=== PATIENT | male | born 1930 | race Caucasian/White ===

== ENCOUNTER 2018-10-06 14:58 | Inpatient (IN) ==
[2018-10-06] MEDS ORDERED: traMADol 50 MG TABLET PO PRN (18:46)
[2018-10-06] MEDS: COPPER PO SCH (21:00)
[2018-10-06] MEDS: (Omega-3/Dha/Epa/Fish Oil [Fish Oil 1,000 Mg Softgel]) PO SCH (21:00)
[2018-10-06] MEDS: ZINC PO SCH (21:00)
[2018-10-06] MEDS: VIT C PO SCH (21:00)
[2018-10-06] MEDS: VIT E PO SCH (21:00)
[2018-10-06] MEDS: VIT A PO SCH (21:00)
[2018-10-06] MEDS: Lactobacillus 1 EACH CAP.SPRINK PO SCH (21:42)
[2018-10-06] MEDS: Aspirin Enteric Coated 81 MG Tablet PO SCH (21:42)
[2018-10-06] MEDS: Amoxicillin/Clavulanate 500 MG TABLET PO SCH (21:42)
[2018-10-07 06:30] LABS: BUN/Creatinine Ratio 29 (6-26); Blood Urea Nitrogen 27 mg/dL (8-23); Calcium 8.6 mg/dL (8.6-10.3); Carbon Dioxide 17 mEq/L (23-29); Chloride 111 mEq/L (98-107); Glucose 116 mg/dL (70-105); Osmolality,Calculated 300 (280-300); Potassium 3.7 mEq/L (3.5-5.1); Sodium 142 mEq/L (136-145); eGFR For Non-African Americans > 60 (> 60)
[2018-10-07 07:27] LABS: Basophils % 0.5 %; Eosinophils # 0.2 K/mcL (0.0-0.6); Eosinophils % 3.1 %; Hematocrit 36.5 % (37.5-50.1); Hemoglobin 12.1 g/dL (12.9-16.9); Immature Granulocytes % 3.1 % (0-4); Lymphocytes # 0.4 K/mcL (0.6-4.6); Lymphocytes % 6.3 %; Mean Corpuscular HGB Conc 33.2 g/dL (31.6-35.5); Mean Corpuscular Hemoglobin 34.1 pg (28.0-33.3); Mean Corpuscular Volume 102.8 fL (83.0-100.0); Mean Platelet Volume 11.3 fL (9.4-12.4); Monocytes # 1.3 K/mcL (0.0-1.3); Monocytes % 20.7 %; Neutrophils # 4.1 K/mcL (1.6-8.9); Platelet Count 235 K/mcL (140-400); Red Blood Count 3.55 M/mcL (4.19-5.50); Red Cell Distribution Width 12.7 % (11.5-14.5); Segmented Neutrophils % 66.3 %
[2018-10-07] MEDS: (Omega-3/Dha/Epa/Fish Oil [Fish Oil 1,000 Mg Softgel]) PO SCH ×2 (08:40→22:04)
[2018-10-07] MEDS: Amoxicillin/Clavulanate 500 MG TABLET PO SCH ×2 (08:40→22:04)
[2018-10-07] MEDS: Lactobacillus 1 EACH CAP.SPRINK PO SCH ×2 (08:40→22:04)
[2018-10-07] MEDS: Multivit/Ca/Min/Fe/FA 1 TAB TABLET PO SCH (08:40)
[2018-10-07] MEDS: Finasteride 5 MG TABLET PO SCH (08:41)
[2018-10-07] MEDS: VIT A PO SCH ×2 (08:41→22:05)
[2018-10-07] MEDS: COPPER PO SCH ×2 (08:41→22:05)
[2018-10-07] MEDS: VIT C PO SCH ×2 (08:41→22:05)
[2018-10-07] MEDS: VIT E PO SCH ×2 (08:41→22:05)
[2018-10-07] MEDS: ZINC PO SCH ×2 (08:41→22:05)
[2018-10-07 08:51] LABS: Platelet Estimate Normal (Normal)
[2018-10-07] MEDS: Acetaminophen 325 MG TABLET PO PRN ×2 (08:52→16:29)
[2018-10-07] MEDS ORDERED: Loratadine 10 MG TABLET PO SCH (09:00)
--- NOTE | 2018-10-07 16:27 | Internal Med History&Physical ---
Date of Encounter: 10/07/18 Time of Encounter: 16:00 Assessment and Plan (1) Nasal fracture Current visit: No Status: Acute Nonoperative intervention. Continue to monitor. Qualifiers: Fracture type: closed Fracture healing: with routine healing Qualified Code(s): S02.2XXD - Fracture of nasal bones, subsequent encounter for fracture with routine healing (2) Azotemia Current visit: Yes Status: Acute Monitor renal indices. (3) Elevated transaminase level Current visit: Yes Status: Acute Monitor labs (4) Macrocytic anemia Current visit: Yes Status: Acute B12 and TSH normal on 09/30/2018. Check folate in a.m. Monitor LFTs (5) Physical deconditioning Current visit: No Status: Acute PT and OT evaluations ordered (6) Altered mental status Current visit: No Status: Acute MMSE will be done Qualifiers: Altered mental status type: unspecified Qualified Code(s): R41.82 - Altered mental status, unspecified Internal Medicine - H&P: HPI Chief complaint: confusion Admitted From: Hospital to Hospital Transfer Plans for Post Hospital Care: Home History of present illness: Mr. Rodriguez is a 88 year old male who was admitted to [facility] swing bed after a October 04 stay at [facility] for confusion, disorientation, and hallucinations. He had sustained a fall 09/27/2018 with face trauma and had been hospitalized at [facility] September 28. Nasal bone fracture were documented as well as superficial abrasions. He had been discharged to a local SNF but her turned to [facility] ER for worsening confusion as per above. It was felt he would benefit from swing bed [facility] for ongoing care needs. Neurologic history is negative for previous large distribution strokes or seizures. His daughter who supplies most of the history states he has had increasing confusion for several months most manifested by word searching. He has been appropriate in conversation otherwise. He does not have a diagnosis of dementia, Parkinson's disease, or other neurologic disorders. Past Med Surg Social Fam HX - Past Medical History Medical history: arthritis, GERD, hyperlipidemia, hypertension, osteoporosis Additional medical history: Enlarged prostate Psychiatric history: no psych history - Past Surgical History Surgical History: cataract Additional surgical history: knee replacement, VEIN STRIPPING, KIDNEY STONE REMOVED - Social History Smoking Status: Never smoker Smokeless Tobacco Status: No Alcohol use: none Drug use: none - Family History Mother Living Status: Father Living Status: Internal Medicine - H&P: Meds Alendronate Sodium [Fosamax] 35 mg PO ANGULO 03/14/18 [History] Aspirin [Lo-Dose Aspirin EC] 81 mg PO HS 03/14/18 [History] Atorvastatin [Lipitor] 40 mg PO DAILY 03/14/18 [History] Captopril 50 mg PO TID 03/14/18 [History] Docusate [Colace] 100 mg PO BID PRN 03/14/18 [History] Esomeprazole Magnesium [Nexium] 40 mg PO DAILY 03/14/18 [History] Finasteride [Proscar] 5 mg PO DAILY 03/14/18 [History] Gemfibrozil [Lopid] 600 mg PO BID 03/14/18 [History] Loratadine [Allergy Relief] 10 mg PO DAILY 03/14/18 [History] Metoprolol Tartrate 50 mg PO BID 03/14/18 [History] Multivitamin [One Daily Essential] 1 tab PO DAILY 03/14/18 [History] Polyethylene Glycol 3350 [MiraLAX] 17 gm PO DAILY PRN 03/14/18 [History] Tamsulosin [Flomax] 0.4 mg PO BID 03/14/18 [History] Vit A/Vit C/Vit E/Zinc/Copper [Icaps Areds Softgel] 1 cap PO BID 03/14/18 [History] Acetaminophen 650 mg PO Q6H PRN #30 capsule 10/02/18 [Rx] [place]-3/Dha/Epa/Fish Oil [Fish Oil 1,000 mg Softgel] 1 cap PO BID 10/05/18 [History] Amoxicillin/Clavulanate [Augmentin] 500 mg PO BID 7 Days #0 10/06/18 [Rx] Lactobacillus [Culturelle] 1 each PO BID #20 cap.sprink 10/06/18 [Rx] Tramadol HCl [Ultram] 50 mg PO QID PRN 5 Days #20 tab 10/06/18 [Rx] Allergy/AdvReac Type Severity Reaction Status Date / Time No Known Allergies Allergy Verified 03/14/18 07:41 All Systems PM: A 10-system review of systems was performed and is negative for pertinent findings except as documented above in the HPI. Review of systems: Gen.: His weight has fluctuated a few pounds in the past year but he is now back to his usual adult baseline weight Cardiovascular: He has history of hypertension but no known NM heart failure angina DVT or pulmonary embolus. He had vein stripping approximately 30 years ago for varicose veins Respiratory: He is a lifelong nonsmoker and has no known chronic lung disease GI: He has GERD. There is no known disorders liver gallbladder or exocrine pancreas : He has BPH and history of kidney stones. There is no other known kidney bladder prostate disorders Neurologic: As per history of present illness Endocrine: He has hyperlipidemia but no known diabetes or thyroid disease Hematology/oncology: He was unaware he had anemia on recent labs. There is no known internal malignancies other blood disorders. 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 He has scoliosis. He denies gout or other bone joint or muscle disorders. - Constitutional Vitals: Temp Pulse Resp BP Pulse Ox 98.0 F 96 18 153/76 96 10/07/18 07:24 10/07/18 07:24 10/07/18 07:24 10/07/18 07:24 10/07/18 07:24 Exam: Gen.: He is a well-developed well-nourished male resting comfortably in bed who appears in no acute distress HEENT: He has resolving ecchymosis involving most of his face with abrasion across the bridge of his nose with blood. He has significant periorbital ecchym oses. There is a hematoma on his forehead just right of midline approximately 3 cm maximum diameter. Mouth: Mucosa is moist. Neck: There is no thyromegaly or adenopathy noted. Heart: Regular without murmurs gallops or ectopics Lungs: No wheezes or crackles are heard. Abdomen: Soft and nontender. Has a ventral midline abdominal hernia. No masses or guarding are noted. Extremities: There is no cyanosis edema or clubbing noted. Dorsalis pedis and posterior tibial pulses are trace to 1+ palpable bilaterally. He has mild DJD changes of his hands. Neurologic: Mental status: He answers a few questions but is not conversational. Cranial nerves: Smile is symmetric. Forehead wrinkles bilaterally. Tongue protrudes midline. EOMI. Motor: There is no pronator drift. Cerebellar: Finger to nose is intact bilaterally. Skin: He has ecchymosis as described above on his head. He has ecchymosis on his left knee. There are abrasions in the linear fashion on his right mid and upper lower leg. Internal Med - H&P Results - Labs CBC & Chem 7: 10/07/18 05:16 10/07/18 05:16 Labs: Short CBC 10/07/18 Range/Units 05:16 WBC 6.2 (4.3-11.1) K/mcL Hgb 12.1 L (12.9-16.9) g/dL Hct 36.5 L (37.5-50.1) % Plt Count 235 (140-400) K/mcL Neutrophils # 4.1 (1.6-8.9) K/mcL BMP 10/07/18 05:16 Sodium 142 Potassium 3.7 Chloride 111 H Carbon Dioxide 17 L BUN 27 H Creatinine 0.92 Glucose 116 H Calcium 8.6
[2018-10-07] MEDS: Acetaminophen 325 MG TABLET PO SCH ×2 (17:49→22:03)
[2018-10-07] MEDS: Aspirin Enteric Coated 81 MG Tablet PO SCH (22:04)
[2018-10-08] MEDS: Acetaminophen 325 MG TABLET PO SCH ×4 (06:09→23:42)
[2018-10-08 07:09] LABS: Basophils % 0.7 %; Eosinophils # 0.3 K/mcL (0.0-0.6); Eosinophils % 5.7 %; Hematocrit 32.2 % (37.5-50.1); Immature Granulocytes % 6.2 % (0-4); Lymphocytes # 0.6 K/mcL (0.6-4.6); Mean Corpuscular HGB Conc 34.2 g/dL (31.6-35.5); Mean Corpuscular Hemoglobin 34.7 pg (28.0-33.3); Mean Corpuscular Volume 101.6 fL (83.0-100.0); Mean Platelet Volume 11.3 fL (9.4-12.4); Monocytes % 17.5 %; Neutrophils # 3.4 K/mcL (1.6-8.9); Platelet Count 244 K/mcL (140-400); Red Blood Count 3.17 M/mcL (4.19-5.50); Red Cell Distribution Width 12.9 % (11.5-14.5); Segmented Neutrophils % 58.9 %
[2018-10-08 07:24] LABS: Alanine Aminotransferase 120 Units/L (7-52); Alkaline Phosphatase 69 Units/L (34-104); Aspartate Amino Transferase 72 Units/L (13-39); BUN/Creatinine Ratio 34 (6-26); Bilirubin,Total 0.9 mg/dL (0.3-1.0); Blood Urea Nitrogen 32 mg/dL (8-23); Calcium 8.4 mg/dL (8.6-10.3); Carbon Dioxide 19 mEq/L (23-29); Chloride 111 mEq/L (98-107); Globulin 3.1 g/dL (2.4-3.5); Glucose 103 mg/dL (70-105); Osmolality,Calculated 297 (280-300); Potassium 3.8 mEq/L (3.5-5.1); Sodium 140 mEq/L (136-145); Total Protein 6.1 g/dL (6.4-8.9); Uric Acid 4.2 mg/dL (2.3-7.6); eGFR For Non-African Americans > 60 (> 60)
[2018-10-08 09:15] LABS: % Iron Saturation 68 % (20-55); Iron 88 mcg/dL (65-175); Transferrin 93 mg/dL (203-362)
[2018-10-08 09:29] LABS: Anisocytosis 1+ (Not Present); Platelet Estimate Normal (Normal); Toxic Granulation Present (Not Present)
[2018-10-08 09:30] LABS: Hypochromasia Present (Not Present)
[2018-10-08 09:50] LABS: Ferritin > 1500 ng/mL (20-250)
[2018-10-08] MEDS: Lactobacillus 1 EACH CAP.SPRINK PO SCH ×2 (10:12→20:11)
[2018-10-08] MEDS: Multivit/Ca/Min/Fe/FA 1 TAB TABLET PO SCH (10:13)
[2018-10-08] MEDS: Finasteride 5 MG TABLET PO SCH (10:13)
[2018-10-08] MEDS: VIT A PO SCH ×2 (10:14→20:11)
[2018-10-08] MEDS: (Omega-3/Dha/Epa/Fish Oil [Fish Oil 1,000 Mg Softgel]) PO SCH ×2 (10:14→20:11)
[2018-10-08] MEDS: COPPER PO SCH ×2 (10:14→20:11)
[2018-10-08] MEDS: ZINC PO SCH ×2 (10:14→20:11)
[2018-10-08] MEDS: VIT E PO SCH ×2 (10:14→20:11)
[2018-10-08] MEDS: VIT C PO SCH ×2 (10:14→20:11)
[2018-10-08] MEDS: Amoxicillin/Clavulanate 500 MG TABLET PO SCH ×2 (10:16→20:11)
--- NOTE | 2018-10-08 17:49 | Internal Med Progress Note ---
Date of Encounter: 10/08/18 Time of Encounter: 17:40 - Assessment and plan (1) Nasal fracture Current Visit: No Status: Acute Assessment and plan: October 08. Nonoperative intervention. Continue to monitor. Qualifiers: Fracture type: closed Fracture healing: with routine healing Qualified Code(s): S02.2XXD - Fracture of nasal bones, subsequent encounter for fracture with routine healing (2) Azotemia Current Visit: Yes Status: Acute Assessment and plan: October 08. BUN and creatinine slightly higher at 32 and 0.95 respectively. Continue to monitor. (3) Elevated transaminase level Current Visit: Yes Status: Acute Assessment and plan: October 08. LFTs show mixed change. Continue to monitor. (4) Macrocytic anemia Current Visit: Yes Status: Acute Assessment and plan: October 08. Hemoglobin has decreased to 11.0. Anemia testing shows iron 88, transferrin saturation 68%, transferrin 93, ferritin >1500, and folate 16.2. B12 level was normal at 725 on 09/30/2018. Continue to monitor CBC. (5) Physical deconditioning Current Visit: No Status: Acute Assessment and plan: October 08. Continue PT and OT. (6) Altered mental status Current Visit: No Status: Acute Assessment and plan: October 08. MMSE results not found. He is improved clinically today. Continue to monitor. Qualifiers: Altered mental status type: unspecified Qualified Code(s): R41.82 - Altered mental status, unspecified (7) Left knee pain Current Visit: Yes Status: Acute Assessment and plan: October 08. Knee x-rays 10/04/2018 showed no fracture. Start BenGay with Lidoderm patch. Qualifiers: Chronicity: acute Qualified Code(s): M25.562 - Pain in left knee - Subjective Interval history: October 08. He has no new complaints and feels better. - Constitutional Vitals: Temp Pulse Resp BP Pulse Ox 97.7 F 69 16 144/76 96 10/08/18 07:02 10/08/18 07:02 10/08/18 07:02 10/08/18 07:02 10/08/18 07:02 Exam: He is resting comfortably in bed and appears in no acute distress. His affect is cheerful. Left knee ecchymosis is minimally changed. Abrasions in the right anterior ocampo area show evolutionary improvement. I reviewed his medications and lab results. Internal Medicine: Result - Labs CBC & Chem 7: 10/08/18 05:47 10/08/18 05:47 Labs: Short CBC 10/08/18 Range/Units 05:47 WBC 5.8 (4.3-11.1) K/mcL Hgb 11.0 L (12.9-16.9) g/dL Hct 32.2 L (37.5-50.1) % Plt Count 244 (140-400) K/mcL Neutrophils # 3.4 (1.6-8.9) K/mcL BMP 10/08/18 05:47 Sodium 140 Potassium 3.8 Chloride 111 H Carbon Dioxide 19 L BUN 32 H Creatinine 0.95 Glucose 103 Calcium 8.4 L Liver Function 10/08/18 Range/Units 05:47 Total Bilirubin 0.9 (0.3-1.0) mg/dL AST 72 H (13-39) Units/L ALT 120 H (7-52) Units/L Alkaline Phosphatase 69 (34-104) Units/L Albumin 3.0 L (3.5-5.7) g/dL Consult Discharge Plan - Plan Referrals: Te Christian MD [Primary Care Provider] - 1 week
[2018-10-08] MEDS ORDERED: Methyl Salicylate/Menthol 28 GM TUBE TP PRN (17:50)
[2018-10-08] MEDS: Methyl Salicylate/Menthol 28 GM TUBE TP SCH (20:09)
[2018-10-08] MEDS: Aspirin Enteric Coated 81 MG Tablet PO SCH (20:11)
[2018-10-09] MEDS: Acetaminophen 325 MG TABLET PO SCH ×4 (02:20→21:28)
[2018-10-09] MEDS: Amoxicillin/Clavulanate 500 MG TABLET PO SCH ×2 (09:25→21:28)
[2018-10-09] MEDS: Finasteride 5 MG TABLET PO SCH (09:26)
[2018-10-09] MEDS: Multivit/Ca/Min/Fe/FA 1 TAB TABLET PO SCH (09:26)
[2018-10-09] MEDS: Lactobacillus 1 EACH CAP.SPRINK PO SCH ×2 (09:26→21:28)
[2018-10-09] MEDS: VIT C PO SCH ×2 (09:27→21:28)
[2018-10-09] MEDS: (Omega-3/Dha/Epa/Fish Oil [Fish Oil 1,000 Mg Softgel]) PO SCH ×2 (09:27→21:28)
[2018-10-09] MEDS: VIT A PO SCH ×2 (09:27→21:28)
[2018-10-09] MEDS: COPPER PO SCH ×2 (09:27→21:28)
[2018-10-09] MEDS: Methyl Salicylate/Menthol 28 GM TUBE TP SCH (09:27)
[2018-10-09] MEDS: ZINC PO SCH ×2 (09:27→21:28)
[2018-10-09] MEDS: VIT E PO SCH ×2 (09:27→21:28)
--- NOTE | 2018-10-09 13:54 | Internal Med Progress Note ---
Date of Encounter: 10/09/18 Time of Encounter: 13:45 - Assessment and plan (1) Nasal fracture Current Visit: No Status: Acute Assessment and plan: October 08. Nonoperative intervention. Continue to monitor. Qualifiers: Fracture type: closed Fracture healing: with routine healing Qualified Code(s): S02.2XXD - Fracture of nasal bones, subsequent encounter for fracture with routine healing (2) Azotemia Current Visit: Yes Status: Acute Assessment and plan: October 08. BUN and creatinine slightly higher at 32 and 0.95 respectively. Continue to monitor. October 09. Recheck labs in a.m. (3) Elevated transaminase level Current Visit: Yes Status: Acute Assessment and plan: October 08. LFTs show mixed change. Continue to monitor. October 09. Recheck labs in a.m. (4) Macrocytic anemia Current Visit: Yes Status: Acute Assessment and plan: October 08. Hemoglobin has decreased to 11.0. Anemia testing shows iron 88, transferrin saturation 68%, transferrin 93, ferritin >1500, and folate 16.2. B12 level was normal at 725 on 09/30/2018. Continue to monitor CBC. October 09. Recheck labs in a.m. (5) Physical deconditioning Current Visit: No Status: Acute Assessment and plan: October 08. Continue PT and OT. (6) Altered mental status Current Visit: No Status: Acute Assessment and plan: October 08. MMSE results not found. He is improved clinically today. Continue to monitor. Qualifiers: Altered mental status type: unspecified Qualified Code(s): R41.82 - Altered mental status, unspecified (7) Left knee pain Current Visit: Yes Status: Acute Assessment and plan: October 08. Knee x-rays 10/04/2018 showed no fracture. Start BenGay with Lidoderm patch. October 09. He states pain has significantly lessened. Continue BenGay and Lidoderm patch Qualifiers: Chronicity: acute Qualified Code(s): M25.562 - Pain in left knee - Subjective Interval history: October 08. He has no new complaints and feels better. October 09. He has no new complaints - Constitutional Vitals: Temp Pulse Resp BP Pulse Ox 98.0 F 80 16 142/84 96 10/09/18 07:08 10/09/18 07:08 10/09/18 07:08 10/09/18 07:08 10/09/18 07:08 Exam: He is resting comfortably in bed and appears in no acute distress. His affect is bright and cheerful. I reviewed his medications and past lab results. Internal Medicine: Result - Labs CBC & Chem 7: 10/08/18 05:47 10/08/18 05:47 Consult Discharge Plan - Plan Referrals: Te Christian MD [Primary Care Provider] - 1 week
[2018-10-09] MEDS ORDERED: NON-FORMULARY MEDICATION 1 EACH EACH (Alendronate Sodium [Fosamax] 35 MG) PO SCH (18:46)
[2018-10-09] MEDS: Aspirin Enteric Coated 81 MG Tablet PO SCH (21:28)
[2018-10-10] MEDS: Acetaminophen 325 MG TABLET PO SCH ×4 (05:18→17:13)
[2018-10-10 06:50] LABS: Basophils # 0.1 K/mcL (0.0-0.2); Basophils % 1.1 %; Eosinophils # 0.4 K/mcL (0.0-0.6); Hematocrit 36.5 % (37.5-50.1); Hemoglobin 12.1 g/dL (12.9-16.9); Immature Granulocytes % 8.6 % (0-4); Lymphocytes # 0.8 K/mcL (0.6-4.6); Lymphocytes % 12.6 %; Mean Corpuscular HGB Conc 33.2 g/dL (31.6-35.5); Mean Corpuscular Hemoglobin 33.9 pg (28.0-33.3); Mean Corpuscular Volume 102.2 fL (83.0-100.0); Mean Platelet Volume 11.1 fL (9.4-12.4); Monocytes # 1.1 K/mcL (0.0-1.3); Monocytes % 17.2 %; Neutrophils # 3.6 K/mcL (1.6-8.9); Platelet Count 322 K/mcL (140-400); Red Blood Count 3.57 M/mcL (4.19-5.50); Red Cell Distribution Width 12.5 % (11.5-14.5); Segmented Neutrophils % 54.5 %
[2018-10-10 07:18] LABS: Alanine Aminotransferase 115 Units/L (7-52); Albumin 3.3 g/dL (3.5-5.7); Alkaline Phosphatase 89 Units/L (34-104); Aspartate Amino Transferase 62 Units/L (13-39); BUN/Creatinine Ratio 29 (6-26); Bilirubin,Total 0.7 mg/dL (0.3-1.0); Blood Urea Nitrogen 28 mg/dL (8-23); Calcium 8.8 mg/dL (8.6-10.3); Carbon Dioxide 23 mEq/L (23-29); Chloride 105 mEq/L (98-107); Globulin 3.4 g/dL (2.4-3.5); Glucose 100 mg/dL (70-105); Osmolality,Calculated 290 (280-300); Potassium 4.1 mEq/L (3.5-5.1); Sodium 137 mEq/L (136-145); Total Protein 6.7 g/dL (6.4-8.9); eGFR For Non-African Americans > 60 (> 60)
[2018-10-10 08:37] LABS: Platelet Estimate Normal (Normal)
[2018-10-10] MEDS: Finasteride 5 MG TABLET PO SCH (10:11)
[2018-10-10] MEDS: Multivit/Ca/Min/Fe/FA 1 TAB TABLET PO SCH (10:11)
[2018-10-10] MEDS: Lactobacillus 1 EACH CAP.SPRINK PO SCH ×2 (10:11→20:47)
[2018-10-10] MEDS: Methyl Salicylate/Menthol 28 GM TUBE TP SCH (10:12)
[2018-10-10] MEDS: Amoxicillin/Clavulanate 500 MG TABLET PO SCH ×2 (10:12→20:47)
[2018-10-10] MEDS: ZINC PO SCH ×2 (10:13→20:47)
[2018-10-10] MEDS: VIT C PO SCH ×2 (10:13→20:47)
[2018-10-10] MEDS: (Omega-3/Dha/Epa/Fish Oil [Fish Oil 1,000 Mg Softgel]) PO SCH ×2 (10:13→20:47)
[2018-10-10] MEDS: VIT A PO SCH ×2 (10:13→20:47)
[2018-10-10] MEDS: COPPER PO SCH ×2 (10:13→20:47)
[2018-10-10] MEDS: VIT E PO SCH ×2 (10:13→20:47)
[2018-10-10] MEDS: Aspirin Enteric Coated 81 MG Tablet PO SCH (20:46)
[2018-10-11] MEDS: Acetaminophen 325 MG TABLET PO SCH ×5 (05:38→23:29)
[2018-10-11] MEDS: Lactobacillus 1 EACH CAP.SPRINK PO SCH ×2 (08:53→20:39)
[2018-10-11] MEDS: Finasteride 5 MG TABLET PO SCH (08:53)
[2018-10-11] MEDS: Amoxicillin/Clavulanate 500 MG TABLET PO SCH ×2 (08:53→20:40)
[2018-10-11] MEDS: Multivit/Ca/Min/Fe/FA 1 TAB TABLET PO SCH (08:54)
[2018-10-11] MEDS: ZINC PO SCH ×2 (08:55→20:32)
[2018-10-11] MEDS: VIT C PO SCH ×2 (08:55→20:32)
[2018-10-11] MEDS: (Omega-3/Dha/Epa/Fish Oil [Fish Oil 1,000 Mg Softgel]) PO SCH ×2 (08:55→20:32)
[2018-10-11] MEDS: VIT A PO SCH ×2 (08:55→20:32)
[2018-10-11] MEDS: Methyl Salicylate/Menthol 28 GM TUBE TP SCH (08:55)
[2018-10-11] MEDS: VIT E PO SCH ×2 (08:55→20:32)
[2018-10-11] MEDS: COPPER PO SCH ×2 (08:55→20:32)
[2018-10-11] MEDS: Aspirin Enteric Coated 81 MG Tablet PO SCH (20:39)
[2018-10-12] MEDS: Acetaminophen 325 MG TABLET PO SCH ×3 (04:38→16:24)
[2018-10-12] MEDS: Finasteride 5 MG TABLET PO SCH (07:46)
[2018-10-12] MEDS: Amoxicillin/Clavulanate 500 MG TABLET PO SCH (07:46)
[2018-10-12] MEDS: VIT C PO SCH ×2 (07:47→20:39)
[2018-10-12] MEDS: Methyl Salicylate/Menthol 28 GM TUBE TP SCH (07:47)
[2018-10-12] MEDS: COPPER PO SCH ×2 (07:47→20:39)
[2018-10-12] MEDS: Lactobacillus 1 EACH CAP.SPRINK PO SCH (07:47)
[2018-10-12] MEDS: ZINC PO SCH ×2 (07:47→20:39)
[2018-10-12] MEDS: VIT E PO SCH ×2 (07:47→20:39)
[2018-10-12] MEDS: VIT A PO SCH ×2 (07:47→20:39)
[2018-10-12] MEDS: Multivit/Ca/Min/Fe/FA 1 TAB TABLET PO SCH (07:47)
[2018-10-12] MEDS: (Omega-3/Dha/Epa/Fish Oil [Fish Oil 1,000 Mg Softgel]) PO SCH ×2 (07:48→20:39)
--- NOTE | 2018-10-12 15:46 | Internal Med Progress Note ---
Date of Encounter: 10/12/18 Time of Encounter: 15:35 - Assessment and plan (1) Nasal fracture Current Visit: No Status: Acute Assessment and plan: October 08. Nonoperative intervention. Continue to monitor. Qualifiers: Fracture type: closed Fracture healing: with routine healing Qualified Code(s): S02.2XXD - Fracture of nasal bones, subsequent encounter for fracture with routine healing (2) Azotemia Current Visit: Yes Status: Acute Assessment and plan: October 08. BUN and creatinine slightly higher at 32 and 0.95 respectively. Continue to monitor. October 09. Recheck labs in a.m. (3) Elevated transaminase level Current Visit: Yes Status: Acute Assessment and plan: October 08. LFTs show mixed change. Continue to monitor. October 09. Recheck labs in a.m. October 12. Transaminase levels slightly improved. Continue to monitor periodically. (4) Macrocytic anemia Current Visit: Yes Status: Acute Assessment and plan: October 08. Hemoglobin has decreased to 11.0. Anemia testing shows iron 88, transferrin saturation 68%, transferrin 93, ferritin >1500, and folate 16.2. B12 level was normal at 725 on 09/30/2018. Continue to monitor CBC. October 09. Recheck labs in a.m. October 12. Hemoglobin improved to 12.1. Continue to monitor periodically. (5) Physical deconditioning Current Visit: No Status: Acute Assessment and plan: October 08. Continue PT and OT. (6) Altered mental status Current Visit: No Status: Acute Assessment and plan: October 08. MMSE results not found. He is improved clinically today. Continue to monitor. Qualifiers: Altered mental status type: unspecified Qualified Code(s): R41.82 - Altered mental status, unspecified (7) Left knee pain Current Visit: Yes Status: Acute Assessment and plan: October 08. Knee x-rays 10/04/2018 showed no fracture. Start BenGay with Lidoderm patch. October 09. He states pain has significantly lessened. Continue BenGay and Lidoderm patch Qualifiers: Chronicity: acute Qualified Code(s): M25.562 - Pain in left knee - Subjective Interval history: October 08. He has no new complaints and feels better. October 09. He has no new complaints October 12. He has no new complaints. - Constitutional Vitals: Temp Pulse Resp BP Pulse Ox 97.9 F 80 18 145/73 98 10/12/18 07:02 10/12/18 07:02 10/12/18 07:02 10/12/18 07:02 10/12/18 07:29 Exam: He is resting comfortably in bed. He is pleasant and talkative but seems rambling in conversation. I reviewed his medications and lab results. Internal Medicine: Result - Labs CBC & Chem 7: 10/10/18 05:20 10/10/18 05:20 Consult Discharge Plan - Plan Referrals: Te Christian MD [Primary Care Provider] - 1 week
[2018-10-12] MEDS: Aspirin Enteric Coated 81 MG Tablet PO SCH (20:38)
[2018-10-13] MEDS: Acetaminophen 325 MG TABLET PO SCH ×4 (00:17→17:00)
[2018-10-13] MEDS: VIT C PO SCH ×2 (08:31→21:24)
[2018-10-13] MEDS: (Omega-3/Dha/Epa/Fish Oil [Fish Oil 1,000 Mg Softgel]) PO SCH ×2 (08:31→21:24)
[2018-10-13] MEDS: VIT E PO SCH ×2 (08:31→21:24)
[2018-10-13] MEDS: VIT A PO SCH ×2 (08:31→21:24)
[2018-10-13] MEDS: ZINC PO SCH ×2 (08:31→21:24)
[2018-10-13] MEDS: COPPER PO SCH ×2 (08:31→21:24)
[2018-10-13] MEDS: Finasteride 5 MG TABLET PO SCH (08:48)
[2018-10-13] MEDS: Multivit/Ca/Min/Fe/FA 1 TAB TABLET PO SCH (08:50)
[2018-10-13] MEDS: Methyl Salicylate/Menthol 28 GM TUBE TP SCH (08:51)
[2018-10-13] MEDS: Aspirin Enteric Coated 81 MG Tablet PO SCH (21:24)
[2018-10-14] MEDS: Acetaminophen 325 MG TABLET PO SCH ×5 (00:08→23:17)
[2018-10-14] MEDS: Finasteride 5 MG TABLET PO SCH (08:57)
[2018-10-14] MEDS: Multivit/Ca/Min/Fe/FA 1 TAB TABLET PO SCH (08:57)
[2018-10-14] MEDS: Methyl Salicylate/Menthol 28 GM TUBE TP SCH (08:58)
[2018-10-14] MEDS: (Omega-3/Dha/Epa/Fish Oil [Fish Oil 1,000 Mg Softgel]) PO SCH ×2 (08:58→20:39)
[2018-10-14] MEDS: ZINC PO SCH ×2 (08:59→20:39)
[2018-10-14] MEDS: VIT C PO SCH ×2 (08:59→20:39)
[2018-10-14] MEDS: VIT E PO SCH ×2 (08:59→20:39)
[2018-10-14] MEDS: VIT A PO SCH ×2 (08:59→20:39)
[2018-10-14] MEDS: COPPER PO SCH ×2 (08:59→20:39)
[2018-10-14] MEDS: Nystatin SUSP 5 ML UD.LIQ PO SCH ×3 (13:02→20:24)
--- NOTE | 2018-10-14 16:10 | Internal Med Progress Note ---
Date of Encounter: 10/14/18 Time of Encounter: 16:02 - Assessment and plan (1) Nasal fracture Current Visit: No Status: Acute Assessment and plan: October 08. Nonoperative intervention. Continue to monitor. Qualifiers: Fracture type: closed Fracture healing: with routine healing Qualified Code(s): S02.2XXD - Fracture of nasal bones, subsequent encounter for fracture with routine healing (2) Azotemia Current Visit: Yes Status: Acute Assessment and plan: October 08. BUN and creatinine slightly higher at 32 and 0.95 respectively. Continue to monitor. October 09. Recheck labs in a.m. October 14. BUN and creatinine stable at 28 and 0.97 respectively on October 10. Continue to monitor periodically. (3) Elevated transaminase level Current Visit: Yes Status: Acute Assessment and plan: October 08. LFTs show mixed change. Continue to monitor. October 09. Recheck labs in a.m. October 12. Transaminase levels slightly improved. Continue to monitor per iodically. (4) Macrocytic anemia Current Visit: Yes Status: Acute Assessment and plan: October 08. Hemoglobin has decreased to 11.0. Anemia testing shows iron 88, transferrin saturation 68%, transferrin 93, ferritin >1500, and folate 16.2. B12 level was normal at 725 on 09/30/2018. Continue to monitor CBC. October 09. Recheck labs in a.m. October 12. Hemoglobin improved to 12.1. Continue to monitor periodically. (5) Physical deconditioning Current Visit: No Status: Acute Assessment and plan: October 08. Continue PT and OT. (6) Altered mental status Current Visit: No Status: Acute Assessment and plan: October 08. MMSE results not found. He is improved clinically today. Continue to monitor. October 14. Mental status improved and now likely at baseline. MMSE score was 13/30. Qualifiers: Altered mental status type: unspecified Qualified Code(s): R41.82 - Altered mental status, unspecified (7) Left knee pain Current Visit: Yes Status: Acute Assessment and plan: October 08. Knee x-rays 10/04/2018 showed no fracture. Start BenGay with Lidoderm patch. October 09. He states pain has significantly lessened. Continue BenGay and Lidoderm patch Qualifiers: Chronicity: acute Qualified Code(s): M25.562 - Pain in left knee - Subjective Interval history: October 08. He has no new complaints and feels better. October 09. He has no new complaints October 12. He has no new complaints. October 14. He has no new complaints. - Constitutional Vitals: Temp Pulse Resp BP Pulse Ox 98.0 F 87 18 116/73 96 10/14/18 08:45 10/14/18 08:45 10/14/18 08:45 10/14/18 08:45 10/14/18 08:45 Exam: He is sitting in a chair at bedside resting comfortably. His affect is bright and cheerful. Facial ecchymosis show continued improvement. I reviewed his medications and lab results. Internal Medicine: Result - Labs CBC & Chem 7: 10/10/18 05:20 10/10/18 05:20 Consult Discharge Plan - Plan Referrals: Te Christian MD [Primary Care Provider] - 1 week
[2018-10-14] MEDS: Aspirin Enteric Coated 81 MG Tablet PO SCH (20:24)
[2018-10-15] MEDS: Acetaminophen 325 MG TABLET PO SCH ×3 (05:00→17:30)
[2018-10-15] MEDS: Nystatin SUSP 5 ML UD.LIQ PO SCH ×4 (08:27→20:16)
[2018-10-15] MEDS: Multivit/Ca/Min/Fe/FA 1 TAB TABLET PO SCH (08:28)
[2018-10-15] MEDS: Methyl Salicylate/Menthol 28 GM TUBE TP SCH (08:28)
[2018-10-15] MEDS: Finasteride 5 MG TABLET PO SCH (08:28)
[2018-10-15] MEDS: ZINC PO SCH ×2 (08:29→21:03)
[2018-10-15] MEDS: VIT A PO SCH ×2 (08:29→21:03)
[2018-10-15] MEDS: VIT C PO SCH ×2 (08:29→21:03)
[2018-10-15] MEDS: (Omega-3/Dha/Epa/Fish Oil [Fish Oil 1,000 Mg Softgel]) PO SCH ×2 (08:29→21:02)
[2018-10-15] MEDS: COPPER PO SCH ×2 (08:29→21:03)
[2018-10-15] MEDS: VIT E PO SCH ×2 (08:29→21:03)
[2018-10-15] MEDS: Aspirin Enteric Coated 81 MG Tablet PO SCH (20:16)
[2018-10-16] MEDS: Acetaminophen 325 MG TABLET PO SCH ×4 (00:14→17:51)
[2018-10-16 07:02] LABS: Eosinophils # 0.3 K/mcL (0.0-0.6); Hemoglobin 11.4 g/dL (12.9-16.9); Mean Corpuscular HGB Conc 32.6 g/dL (31.6-35.5); Mean Corpuscular Hemoglobin 33.7 pg (28.0-33.3); Mean Corpuscular Volume 103.6 fL (83.0-100.0); Mean Platelet Volume 10.7 fL (9.4-12.4); Monocytes # 1.2 K/mcL (0.0-1.3); Platelet Count 300 K/mcL (140-400); Red Blood Count 3.38 M/mcL (4.19-5.50); Red Cell Distribution Width 12.2 % (11.5-14.5)
[2018-10-16 07:27] LABS: Alanine Aminotransferase 39 Units/L (7-52); Albumin 3.4 g/dL (3.5-5.7); Albumin/Globulin Ratio 1.3 (1.1-2.2); Alkaline Phosphatase 90 Units/L (34-104); Aspartate Amino Transferase 21 Units/L (13-39); BUN/Creatinine Ratio 25 (6-26); Bilirubin,Total 0.6 mg/dL (0.3-1.0); Blood Urea Nitrogen 29 mg/dL (8-23); Calcium 8.4 mg/dL (8.6-10.3); Carbon Dioxide 25 mEq/L (23-29); Chloride 106 mEq/L (98-107); Globulin 2.7 g/dL (2.4-3.5); Glucose 116 mg/dL (70-105); Osmolality,Calculated 295 (280-300); Potassium 3.8 mEq/L (3.5-5.1); Sodium 139 mEq/L (136-145); Total Protein 6.1 g/dL (6.4-8.9); eGFR For Non-African Americans > 60 (> 60)
[2018-10-16 09:03] LABS: Anisocytosis 1+ (Not Present); Lymphocytes # 1.4 K/mcL (0.6-4.6); Plasma Cells Present (Not Present); Platelet Estimate Normal (Normal); Reactive Lymphocytes Present (Not Present); Toxic Granulation Present (Not Present)
[2018-10-16] MEDS: Nystatin SUSP 5 ML UD.LIQ PO SCH ×4 (10:40→20:21)
[2018-10-16] MEDS: Multivit/Ca/Min/Fe/FA 1 TAB TABLET PO SCH (10:40)
[2018-10-16] MEDS: VIT E PO SCH ×2 (10:41→20:22)
[2018-10-16] MEDS: Methyl Salicylate/Menthol 28 GM TUBE TP SCH (10:41)
[2018-10-16] MEDS: VIT A PO SCH ×2 (10:41→20:22)
[2018-10-16] MEDS: COPPER PO SCH ×2 (10:41→20:22)
[2018-10-16] MEDS: VIT C PO SCH ×2 (10:41→20:22)
[2018-10-16] MEDS: ZINC PO SCH ×2 (10:41→20:22)
[2018-10-16] MEDS: Finasteride 5 MG TABLET PO SCH (10:41)
[2018-10-16] MEDS: (Omega-3/Dha/Epa/Fish Oil [Fish Oil 1,000 Mg Softgel]) PO SCH ×2 (10:42→20:22)
[2018-10-16] MEDS: Aspirin Enteric Coated 81 MG Tablet PO SCH (20:22)
[2018-10-17] MEDS: Acetaminophen 325 MG TABLET PO SCH ×4 (00:42→17:45)
[2018-10-17] MEDS: Finasteride 5 MG TABLET PO SCH (10:34)
[2018-10-17] MEDS: Multivit/Ca/Min/Fe/FA 1 TAB TABLET PO SCH (10:34)
[2018-10-17] MEDS: Methyl Salicylate/Menthol 28 GM TUBE TP SCH (10:34)
[2018-10-17] MEDS: Nystatin SUSP 5 ML UD.LIQ PO SCH ×4 (10:34→20:15)
[2018-10-17] MEDS: ZINC PO SCH ×2 (10:35→20:15)
[2018-10-17] MEDS: (Omega-3/Dha/Epa/Fish Oil [Fish Oil 1,000 Mg Softgel]) PO SCH ×2 (10:35→20:15)
[2018-10-17] MEDS: VIT C PO SCH ×2 (10:35→20:15)
[2018-10-17] MEDS: COPPER PO SCH ×2 (10:35→20:15)
[2018-10-17] MEDS: VIT A PO SCH ×2 (10:35→20:15)
[2018-10-17] MEDS: VIT E PO SCH ×2 (10:35→20:15)
--- NOTE | 2018-10-17 14:39 | Internal Med Progress Note ---
Date of Encounter: 10/17/18 Time of Encounter: 14:32 - Assessment and plan (1) Nasal fracture Current Visit: No Status: Acute Assessment and plan: October 08. Nonoperative intervention. Continue to monitor. Qualifiers: Fracture type: closed Fracture healing: with routine healing Qualified Code(s): S02.2XXD - Fracture of nasal bones, subsequent encounter for fracture with routine healing (2) Azotemia Current Visit: Yes Status: Acute Assessment and plan: October 08. BUN and creatinine slightly higher at 32 and 0.95 respectively. Continue to monitor. October 09. Recheck labs in a.m. October 14. BUN and creatinine stable at 28 and 0.97 respectively on October 10. Continue to monitor periodically. October 17. BUN and creatinine slightly higher at 29 and 1.14 respectively with estimated GFR greater than 60. Continue to monitor. (3) Elevated transaminase level Current Visit: Yes Status: Acute Assessment and plan: October 08. LFTs show mixed change. Continue to monitor. October 09. Recheck labs in a.m. October 12. Transaminase levels slightly improved. Continue to monitor periodically. (4) Macrocytic anemia Current Visit: Yes Status: Acute Assessment and plan: October 08. Hemoglobin has decreased to 11.0. Anemia testing shows iron 88, transferrin saturation 68%, transferrin 93, ferritin >1500, and folate 16.2. B12 level was normal at 725 on 09/30/2018. Continue to monitor CBC. October 09. Recheck labs in a.m. October 12. Hemoglobin improved to 12.1. Continue to monitor periodically. October 17. Hemoglobin minimally decreased at 11.4. Continue to monitor periodically. (5) Physical deconditioning Current Visit: No Status: Acute Assessment and plan: October 08. Continue PT and OT. (6) Altered mental status Current Visit: No Status: Acute Assessment and plan: October 08. MMSE results not found. He is improved clinically today. Continue to monitor. October 14. Mental status improved and now likely at baseline. MMSE score was 13/30. Qualifiers: Altered mental status type: unspecified Qualified Code(s): R41.82 - Altered mental status, unspecified (7) Left knee pain Current Visit: Yes Status: Acute Assessment and plan: October 08. Knee x-rays 10/04/2018 showed no fracture. Start BenGay with Lidoderm patch. October 09. He states pain has significantly lessened. Continue BenGay and Lidoderm patch Qualifiers: Chronicity: acute Qualified Code(s): M25.562 - Pain in left knee - Subjective Interval history: October 08. He has no new complaints and feels better. October 09. He has no new complaints October 12. He has no new complaints. October 14. He has no new complaints. October 17. He has no new complaints. - Constitutional Vitals: Temp Pulse Resp BP Pulse Ox 97.7 F 83 18 130/79 97 10/17/18 07:09 10/17/18 07:09 10/17/18 07:09 10/17/18 07:09 10/17/18 07:09 Exam: He is resting comfortably in bed and appears in no acute distress. His affect is bright and cheerful. Facial ecchymoses and lacerations continue to improve. I reviewed his medications and lab results. Internal Medicine: Result - Labs CBC & Chem 7: 10/16/18 06:20 10/16/18 06:20 Consult Discharge Plan - Plan Referrals: Te Christian MD [Primary Care Provider] - 1 week
[2018-10-17] MEDS: Aspirin Enteric Coated 81 MG Tablet PO SCH (20:15)
[2018-10-18] MEDS: Acetaminophen 325 MG TABLET PO SCH ×5 (00:16→23:54)
[2018-10-18] MEDS: Methyl Salicylate/Menthol 28 GM TUBE TP SCH (08:35)
[2018-10-18] MEDS: Nystatin SUSP 5 ML UD.LIQ PO SCH ×4 (08:35→20:15)
[2018-10-18] MEDS: VIT E PO SCH ×2 (08:36→20:15)
[2018-10-18] MEDS: COPPER PO SCH ×2 (08:36→20:15)
[2018-10-18] MEDS: VIT A PO SCH ×2 (08:36→20:15)
[2018-10-18] MEDS: (Omega-3/Dha/Epa/Fish Oil [Fish Oil 1,000 Mg Softgel]) PO SCH ×2 (08:36→20:15)
[2018-10-18] MEDS: Multivit/Ca/Min/Fe/FA 1 TAB TABLET PO SCH (08:36)
[2018-10-18] MEDS: VIT C PO SCH ×2 (08:36→20:15)
[2018-10-18] MEDS: ZINC PO SCH ×2 (08:36→20:15)
[2018-10-18] MEDS: Finasteride 5 MG TABLET PO SCH (08:37)
[2018-10-18] MEDS: Aspirin Enteric Coated 81 MG Tablet PO SCH (20:15)
[2018-10-19 05:25] LABS: Eosinophils # 0.2 K/mcL (0.0-0.6); Hematocrit 35.2 % (37.5-50.1); Hemoglobin 11.8 g/dL (12.9-16.9); Mean Corpuscular HGB Conc 33.5 g/dL (31.6-35.5); Mean Corpuscular Hemoglobin 34.5 pg (28.0-33.3); Mean Corpuscular Volume 102.9 fL (83.0-100.0); Mean Platelet Volume 10.7 fL (9.4-12.4); Monocytes # 1.2 K/mcL (0.0-1.3); Neutrophils # 2.7 K/mcL (1.6-8.9); Platelet Count 262 K/mcL (140-400); Red Blood Count 3.42 M/mcL (4.19-5.50); Red Cell Distribution Width 12.3 % (11.5-14.5)
[2018-10-19 05:53] LABS: BUN/Creatinine Ratio 22 (6-26); Blood Urea Nitrogen 28 mg/dL (8-23); Calcium 8.6 mg/dL (8.6-10.3); Carbon Dioxide 24 mEq/L (23-29); Chloride 105 mEq/L (98-107); Glucose 110 mg/dL (70-105); Osmolality,Calculated 292 (280-300); Potassium 4.3 mEq/L (3.5-5.1); Sodium 138 mEq/L (136-145); eGFR For Non-African Americans 52 (> 60)
[2018-10-19] MEDS: Acetaminophen 325 MG TABLET PO SCH ×3 (06:00→17:32)
[2018-10-19 06:39] LABS: Macrocytosis Present (Not Present); Platelet Estimate Normal (Normal)
[2018-10-19] MEDS: Nystatin SUSP 5 ML UD.LIQ PO SCH ×4 (09:18→20:33)
[2018-10-19] MEDS: Multivit/Ca/Min/Fe/FA 1 TAB TABLET PO SCH (09:18)
[2018-10-19] MEDS: Methyl Salicylate/Menthol 28 GM TUBE TP SCH (09:19)
[2018-10-19] MEDS: ZINC PO SCH ×2 (09:20→20:35)
[2018-10-19] MEDS: (Omega-3/Dha/Epa/Fish Oil [Fish Oil 1,000 Mg Softgel]) PO SCH ×2 (09:20→20:35)
[2018-10-19] MEDS: COPPER PO SCH ×2 (09:20→20:35)
[2018-10-19] MEDS: VIT E PO SCH ×2 (09:20→20:35)
[2018-10-19] MEDS: VIT A PO SCH ×2 (09:20→20:35)
[2018-10-19] MEDS: VIT C PO SCH ×2 (09:20→20:35)
[2018-10-19] MEDS: Finasteride 5 MG TABLET PO SCH (09:20)
[2018-10-19] MEDS: Aspirin Enteric Coated 81 MG Tablet PO SCH (20:32)
[2018-10-20] MEDS: Acetaminophen 325 MG TABLET PO SCH ×5 (00:05→21:57)
[2018-10-20] MEDS: Finasteride 5 MG TABLET PO SCH (07:56)
[2018-10-20] MEDS: Multivit/Ca/Min/Fe/FA 1 TAB TABLET PO SCH (07:57)
[2018-10-20] MEDS: Nystatin SUSP 5 ML UD.LIQ PO SCH ×4 (07:58→21:58)
[2018-10-20] MEDS: Methyl Salicylate/Menthol 28 GM TUBE TP SCH (09:05)
[2018-10-20] MEDS: VIT A PO SCH ×2 (09:23→21:58)
[2018-10-20] MEDS: COPPER PO SCH ×2 (09:23→21:58)
[2018-10-20] MEDS: ZINC PO SCH ×2 (09:23→21:58)
[2018-10-20] MEDS: VIT E PO SCH ×2 (09:23→21:58)
[2018-10-20] MEDS: VIT C PO SCH ×2 (09:23→21:58)
[2018-10-20] MEDS: (Omega-3/Dha/Epa/Fish Oil [Fish Oil 1,000 Mg Softgel]) PO SCH ×2 (09:23→21:58)
--- NOTE | 2018-10-20 12:29 | Internal Med Progress Note ---
Date of Encounter: 10/20/18 Time of Encounter: 12:21 - Assessment and plan (1) Nasal fracture Current Visit: No Status: Acute Assessment and plan: October 08. Nonoperative intervention. Continue to monitor. Qualifiers: Fracture type: closed Fracture healing: with routine healing Qualified Code(s): S02.2XXD - Fracture of nasal bones, subsequent encounter for fracture with routine healing (2) Azotemia Current Visit: Yes Status: Acute Assessment and plan: October 08. BUN and creatinine slightly higher at 32 and 0.95 respectively. Continue to monitor. October 09. Recheck labs in a.m. October 14. BUN and creatinine stable at 28 and 0.97 respectively on October 10. Continue to monitor periodically. October 17. BUN and creatinine slightly higher at 29 and 1.14 respectively with estimated GFR greater than 60. Continue to monitor. October 20. Creatinine slightly higher at 1.30 with estimated GFR 52 on 10/19/2018. Recheck labs in a.m. (3) Elevated transaminase level Current Visit: Yes Status: Acute Assessment and plan: October 08. LFTs show mixed change. Continue to monitor. October 09. Recheck labs in a.m. October 12. Transaminase levels slightly improved. Continue to monitor periodically. October 20. Recheck labs in a.m. (4) Macrocytic anemia Current Visit: Yes Status: Acute Assessment and plan: October 08. Hemoglobin has decreased to 11.0. Anemia testing shows iron 88, transferrin saturation 68%, transferrin 93, ferritin >1500, and folate 16.2. B12 level was normal at 725 on 09/30/2018. Continue to monitor CBC. October 09. Recheck labs in a.m. October 12. Hemoglobin improved to 12.1. Continue to monitor periodically. October 17. Hemoglobin minimally decreased at 11.4. Continue to monitor periodically. October 20. Hemoglobin stable at 11.8. (5) Physical deconditioning Current Visit: No Status: Acute Assessment and plan: October 08. Continue PT and OT. (6) Altered mental status Current Visit: No Status: Acute Assessment and plan: October 08. MMSE results not found. He is improved clinically today. Continue to monitor. October 14. Mental status improved and now likely at baseline. MMSE score was 13/30. Qualifiers: Altered mental status type: unspecified Qualified Code(s): R41.82 - Altered mental status, unspecified (7) Left knee pain Current Visit: Yes Status: Acute Assessment and plan: October 08. Knee x-rays 10/04/2018 showed no fracture. Start BenGay with Lidoderm patch. October 09. He states pain has significantly lessened. Continue BenGay and Lidoderm patch October 20. He has no complaints of knee pain at this time. Will discontinue Lidoderm. Qualifiers: Chronicity: acute Qualified Code(s): M25.562 - Pain in left knee - Subjective Interval history: October 08. He has no new complaints and feels better. October 09. He has no new complaints October 12. He has no new complaints. October 14. He has no new complaints. October 17. He has no new complaints. October 20. He has no new complaints. - Constitutional Vitals: Temp Pulse Resp BP Pulse Ox 97.5 F L 79 18 124/73 95 10/20/18 06:38 10/20/18 06:38 10/19/18 18:00 10/20/18 06:38 10/20/18 06:38 Exam: He is sitting in a chair at bedside eating lunch. His affect is bright and cheerful. There is continued evolutionary improvement of the facial ecchymosis and nasal laceration. I reviewed his medications and lab results. Internal Medicine: Result - Labs CBC & Chem 7: 10/19/18 04:46 10/19/18 04:46 Consult Discharge Plan - Plan Referrals: Te Christian MD [Primary Care Provider] - 1 week
[2018-10-20] MEDS: Aspirin Enteric Coated 81 MG Tablet PO SCH (21:58)
[2018-10-21 05:59] LABS: Basophils % 0.2 %; Eosinophils # 0.2 K/mcL (0.0-0.6); Eosinophils % 4.4 %; Hematocrit 34.5 % (37.5-50.1); Hemoglobin 11.7 g/dL (12.9-16.9); Immature Granulocytes % 1.6 % (0-4); Lymphocytes # 0.8 K/mcL (0.6-4.6); Lymphocytes % 18.7 %; Mean Corpuscular HGB Conc 33.9 g/dL (31.6-35.5); Mean Corpuscular Hemoglobin 34.2 pg (28.0-33.3); Mean Corpuscular Volume 100.9 fL (83.0-100.0); Mean Platelet Volume 10.9 fL (9.4-12.4); Monocytes % 23.5 %; Neutrophils # 2.2 K/mcL (1.6-8.9); Platelet Count 234 K/mcL (140-400); Red Blood Count 3.42 M/mcL (4.19-5.50); Red Cell Distribution Width 12.2 % (11.5-14.5); Segmented Neutrophils % 51.6 %
[2018-10-21 06:17] LABS: Alanine Aminotransferase 24 Units/L (7-52); Albumin 3.6 g/dL (3.5-5.7); Albumin/Globulin Ratio 1.4 (1.1-2.2); Alkaline Phosphatase 96 Units/L (34-104); Aspartate Amino Transferase 18 Units/L (13-39); BUN/Creatinine Ratio 22 (6-26); Bilirubin,Total 0.6 mg/dL (0.3-1.0); Blood Urea Nitrogen 22 mg/dL (8-23); Calcium 8.8 mg/dL (8.6-10.3); Carbon Dioxide 21 mEq/L (23-29); Chloride 108 mEq/L (98-107); Globulin 2.6 g/dL (2.4-3.5); Glucose 101 mg/dL (70-105); Osmolality,Calculated 289 (280-300); Potassium 4.2 mEq/L (3.5-5.1); Sodium 138 mEq/L (136-145); Total Protein 6.2 g/dL (6.4-8.9); eGFR For Non-African Americans > 60 (> 60)
[2018-10-21] MEDS: Acetaminophen 325 MG TABLET PO SCH ×3 (06:38→16:37)
[2018-10-21 07:33] LABS: Platelet Estimate Normal (Normal)
[2018-10-21] MEDS: Finasteride 5 MG TABLET PO SCH (09:21)
[2018-10-21] MEDS: Multivit/Ca/Min/Fe/FA 1 TAB TABLET PO SCH (09:21)
[2018-10-21] MEDS: Nystatin SUSP 5 ML UD.LIQ PO SCH ×4 (09:21→21:52)
[2018-10-21] MEDS: Methyl Salicylate/Menthol 28 GM TUBE TP SCH (09:21)
[2018-10-21] MEDS: (Omega-3/Dha/Epa/Fish Oil [Fish Oil 1,000 Mg Softgel]) PO SCH ×2 (12:18→21:53)
[2018-10-21] MEDS: COPPER PO SCH ×2 (12:18→21:53)
[2018-10-21] MEDS: VIT A PO SCH ×2 (12:18→21:53)
[2018-10-21] MEDS: VIT C PO SCH ×2 (12:18→21:53)
[2018-10-21] MEDS: ZINC PO SCH ×2 (12:18→21:53)
[2018-10-21] MEDS: VIT E PO SCH ×2 (12:18→21:53)
[2018-10-21] MEDS: Aspirin Enteric Coated 81 MG Tablet PO SCH (21:52)
[2018-10-22] MEDS: Acetaminophen 325 MG TABLET PO SCH ×4 (00:27→18:05)
[2018-10-22] MEDS: Multivit/Ca/Min/Fe/FA 1 TAB TABLET PO SCH (10:15)
[2018-10-22] MEDS: Finasteride 5 MG TABLET PO SCH (10:15)
[2018-10-22] MEDS: Nystatin SUSP 5 ML UD.LIQ PO SCH ×4 (10:15→21:43)
[2018-10-22] MEDS: ZINC PO SCH ×2 (10:16→21:44)
[2018-10-22] MEDS: (Omega-3/Dha/Epa/Fish Oil [Fish Oil 1,000 Mg Softgel]) PO SCH ×2 (10:16→21:44)
[2018-10-22] MEDS: VIT E PO SCH ×2 (10:16→21:44)
[2018-10-22] MEDS: COPPER PO SCH ×2 (10:16→21:44)
[2018-10-22] MEDS: VIT C PO SCH ×2 (10:16→21:44)
[2018-10-22] MEDS: VIT A PO SCH ×2 (10:16→21:44)
[2018-10-22] MEDS: Methyl Salicylate/Menthol 28 GM TUBE TP SCH (11:42)
[2018-10-22] MEDS: Aspirin Enteric Coated 81 MG Tablet PO SCH (21:43)
[2018-10-23] MEDS: Acetaminophen 325 MG TABLET PO SCH ×4 (00:01→19:04)
[2018-10-23] MEDS: (Omega-3/Dha/Epa/Fish Oil [Fish Oil 1,000 Mg Softgel]) PO SCH ×2 (07:55→21:27)
[2018-10-23] MEDS: VIT A PO SCH ×2 (07:56→21:27)
[2018-10-23] MEDS: ZINC PO SCH ×2 (07:56→21:27)
[2018-10-23] MEDS: COPPER PO SCH ×2 (07:56→21:27)
[2018-10-23] MEDS: VIT E PO SCH ×2 (07:56→21:27)
[2018-10-23] MEDS: VIT C PO SCH ×2 (07:56→21:27)
[2018-10-23] MEDS: Finasteride 5 MG TABLET PO SCH (09:14)
[2018-10-23] MEDS: Multivit/Ca/Min/Fe/FA 1 TAB TABLET PO SCH (09:15)
[2018-10-23] MEDS: Nystatin SUSP 5 ML UD.LIQ PO SCH ×4 (09:15→21:26)
[2018-10-23] MEDS: Methyl Salicylate/Menthol 28 GM TUBE TP SCH (09:15)
[2018-10-23] MEDS: Aspirin Enteric Coated 81 MG Tablet PO SCH (21:26)
[2018-10-24] MEDS: Acetaminophen 325 MG TABLET PO SCH ×4 (00:50→17:43)
[2018-10-24] MEDS: Nystatin SUSP 5 ML UD.LIQ PO SCH ×4 (09:14→20:00)
[2018-10-24] MEDS: Multivit/Ca/Min/Fe/FA 1 TAB TABLET PO SCH (09:15)
[2018-10-24] MEDS: Finasteride 5 MG TABLET PO SCH (09:15)
[2018-10-24] MEDS: Methyl Salicylate/Menthol 28 GM TUBE TP SCH (09:16)
[2018-10-24] MEDS: (Omega-3/Dha/Epa/Fish Oil [Fish Oil 1,000 Mg Softgel]) PO SCH ×2 (09:16→20:00)
[2018-10-24] MEDS: ZINC PO SCH ×2 (09:17→20:00)
[2018-10-24] MEDS: COPPER PO SCH ×2 (09:17→20:00)
[2018-10-24] MEDS: VIT E PO SCH ×2 (09:17→20:00)
[2018-10-24] MEDS: VIT C PO SCH ×2 (09:17→20:00)
[2018-10-24] MEDS: VIT A PO SCH ×2 (09:17→20:00)
--- NOTE | 2018-10-24 11:35 | Internal Med Progress Note ---
Date of Encounter: 10/24/18 Time of Encounter: 11:25 - Assessment and plan (1) Nasal fracture Current Visit: No Status: Acute Assessment and plan: October 08. Nonoperative intervention. Continue to monitor. Qualifiers: Fracture type: closed Fracture healing: with routine healing Qualified Code(s): S02.2XXD - Fracture of nasal bones, subsequent encounter for fracture with routine healing (2) Azotemia Current Visit: Yes Status: Acute Assessment and plan: October 08. BUN and creatinine slightly higher at 32 and 0.95 respectively. Continue to monitor. October 09. Recheck labs in a.m. October 14. BUN and creatinine stable at 28 and 0.97 respectively on October 10. Continue to monitor periodically. October 17. BUN and creatinine slightly higher at 29 and 1.14 respectively with estimated GFR greater than 60. Continue to monitor. October 20. Creatinine slightly higher at 1.30 with estimated GFR 52 on 10/19/2018. Recheck labs in a.m. October 23. BUN and creatinine normal at 22 and 1.00 respectively with estimated GFR greater than 60. (3) Elevated transaminase level Current Visit: Yes Status: Acute Assessment and plan: October 08. LFTs show mixed change. Continue to monitor. October 09. Recheck labs in a.m. October 12. Transaminase levels slightly improved. Continue to monitor periodically. October 20. Recheck labs in a.m. October 24. LFTs remain normal. (4) Macrocytic anemia Current Visit: Yes Status: Acute Assessment and plan: October 08. Hemoglobin has decreased to 11.0. Anemia testing shows iron 88, transferrin saturation 68%, transferrin 93, ferritin >1500, and folate 16.2. B12 level was normal at 725 on 09/30/2018. Continue to monitor CBC. October 09. Recheck labs in a.m. October 12. Hemoglobin improved to 12.1. Continue to monitor periodically. October 17. Hemoglobin minimally decreased at 11.4. Continue to monitor periodic ally. October 20. Hemoglobin stable at 11.8. October 24. Hemoglobin stable at 11.7. (5) Physical deconditioning Current Visit: No Status: Acute Assessment and plan: October 08. Continue PT and OT. (6) Altered mental status Current Visit: No Status: Acute Assessment and plan: October 08. MMSE results not found. He is improved clinically today. Continue to monitor. October 14. Mental status improved and now likely at baseline. MMSE score was 13/30. Qualifiers: Altered mental status type: unspecified Qualified Code(s): R41.82 - Altered mental status, unspecified (7) Left knee pain Current Visit: Yes Status: Acute Assessment and plan: October 08. Knee x-rays 10/04/2018 showed no fracture. Start BenGay with Lidoderm patch. October 09. He states pain has significantly lessened. Continue BenGay and Lidoderm patch October 20. He has no complaints of knee pain at this time. Will discontinue Lidoderm. Qualifiers: Chronicity: acute Qualified Code(s): M25.562 - Pain in left knee - Subjective Interval history: October 08. He has no new complaints and feels better. October 09. He has no new complaints October 12. He has no new complaints. October 14. He has no new complaints. October 17. He has no new complaints. October 20. He has no new complaints. October 24. He has no new complaints. - Constitutional Vitals: Temp Pulse Resp BP Pulse Ox 97.5 F L 73 16 132/72 92 10/24/18 07:52 10/24/18 07:52 10/24/18 07:52 10/24/18 07:52 10/24/18 07:52 Exam: He is lying in bed resting comfortably. His affect is bright and cheerful. Facial ecchymosis show continued evolutionary improvement. I reviewed his medications and lab results. Internal Medicine: Result - Labs CBC & Chem 7: 10/21/18 05:38 10/21/18 05:38 Consult Discharge Plan - Plan Referrals: Te Christian MD [Primary Care Provider] - 1 week
[2018-10-24] MEDS: Aspirin Enteric Coated 81 MG Tablet PO SCH (19:59)
[2018-10-25] MEDS: Acetaminophen 325 MG TABLET PO SCH ×4 (00:15→17:22)
[2018-10-25] MEDS: Finasteride 5 MG TABLET PO SCH (08:16)
[2018-10-25] MEDS: Nystatin SUSP 5 ML UD.LIQ PO SCH ×4 (08:17→19:55)
[2018-10-25] MEDS: Methyl Salicylate/Menthol 28 GM TUBE TP SCH (08:17)
[2018-10-25] MEDS: Multivit/Ca/Min/Fe/FA 1 TAB TABLET PO SCH (08:17)
[2018-10-25] MEDS: (Omega-3/Dha/Epa/Fish Oil [Fish Oil 1,000 Mg Softgel]) PO SCH ×2 (08:17→19:59)
[2018-10-25] MEDS: VIT A PO SCH ×2 (08:18→19:59)
[2018-10-25] MEDS: VIT C PO SCH ×2 (08:18→19:59)
[2018-10-25] MEDS: COPPER PO SCH ×2 (08:18→19:59)
[2018-10-25] MEDS: ZINC PO SCH ×2 (08:18→19:59)
[2018-10-25] MEDS: VIT E PO SCH ×2 (08:18→19:59)
[2018-10-25] MEDS: Aspirin Enteric Coated 81 MG Tablet PO SCH (19:55)
[2018-10-26] MEDS: Acetaminophen 325 MG TABLET PO SCH ×4 (01:00→17:37)
[2018-10-26] MEDS: Finasteride 5 MG TABLET PO SCH (07:52)
[2018-10-26] MEDS: Nystatin SUSP 5 ML UD.LIQ PO SCH ×4 (07:52→20:14)
[2018-10-26] MEDS: Multivit/Ca/Min/Fe/FA 1 TAB TABLET PO SCH (07:53)
[2018-10-26] MEDS: Methyl Salicylate/Menthol 28 GM TUBE TP SCH (07:53)
[2018-10-26] MEDS: (Omega-3/Dha/Epa/Fish Oil [Fish Oil 1,000 Mg Softgel]) PO SCH ×2 (07:53→22:09)
[2018-10-26] MEDS: VIT A PO SCH ×2 (07:53→22:09)
[2018-10-26] MEDS: COPPER PO SCH ×2 (07:53→22:09)
[2018-10-26] MEDS: ZINC PO SCH ×2 (07:53→22:09)
[2018-10-26] MEDS: VIT C PO SCH ×2 (07:53→22:09)
[2018-10-26] MEDS: VIT E PO SCH ×2 (07:53→22:09)
--- NOTE | 2018-10-26 12:19 | Internal Med Progress Note ---
Date of Encounter: 10/26/18 Time of Encounter: 12:12 - Assessment and plan (1) Nasal fracture Current Visit: No Status: Acute Assessment and plan: October 08. Nonoperative intervention. Continue to monitor. Qualifiers: Fracture type: closed Fracture healing: with routine healing Qualified Code(s): S02.2XXD - Fracture of nasal bones, subsequent encounter for fracture with routine healing (2) Azotemia Current Visit: Yes Status: Acute Assessment and plan: October 08. BUN and creatinine slightly higher at 32 and 0.95 respectively. Continue to monitor. October 09. Recheck labs in a.m. October 14. BUN and creatinine stable at 28 and 0.97 respectively on October 10. Continue to monitor periodically. October 17. BUN and creatinine slightly higher at 29 and 1.14 respectively with estimated GFR greater than 60. Continue to monitor. October 20. Creatinine slightly higher at 1.30 with estimated GFR 52 on 10/19/2018. Recheck labs in a.m. October 23. BUN and creatinine normal at 22 and 1.00 respectively with estimated GFR greater than 60. (3) Elevated transaminase level Current Visit: Yes Status: Acute Assessment and plan: October 08. LFTs show mixed change. Continue to monitor. October 09. Recheck labs in a.m. October 12. Transaminase levels slightly improved. Continue to monitor periodically. October 20. Recheck labs in a.m. October 24. LFTs remain normal. (4) Macrocytic anemia Current Visit: Yes Status: Acute Assessment and plan: October 08. Hemoglobin has decreased to 11.0. Anemia testing shows iron 88, transferrin saturation 68%, transferrin 93, ferritin >1500, and folate 16.2. B12 level was normal at 725 on 09/30/2018. Continue to monitor CBC. October 09. Recheck labs in a.m. October 12. Hemoglobin improved to 12.1. Continue to monitor periodically. October 17. Hemoglobin minimally decreased at 11.4. Continue to monitor periodic ally. October 20. Hemoglobin stable at 11.8. October 24. Hemoglobin stable at 11.7. (5) Physical deconditioning Current Visit: No Status: Acute Assessment and plan: October 08. Continue PT and OT. October 26. Anticipate discharge home 10/28/2018. (6) Altered mental status Current Visit: No Status: Acute Assessment and plan: October 08. MMSE results not found. He is improved clinically today. Continue to monitor. October 14. Mental status improved and now likely at baseline. MMSE score was 13/30. Qualifiers: Altered mental status type: unspecified Qualified Code(s): R41.82 - Altered mental status, unspecified (7) Left knee pain Current Visit: Yes Status: Acute Assessment and plan: October 08. Knee x-rays 10/04/2018 showed no fracture. Start BenGay with Lidoderm patch. October 09. He states pain has significantly lessened. Continue BenGay and L idoderm patch October 20. He has no complaints of knee pain at this time. Will discontinue Lidoderm. Qualifiers: Chronicity: acute Qualified Code(s): M25.562 - Pain in left knee - Subjective Interval history: October 08. He has no new complaints and feels better. October 09. He has no new complaints October 12. He has no new complaints. October 14. He has no new complaints. October 17. He has no new complaints. October 20. He has no new complaints. October 24. He has no new complaints. October 26. He has no new complaints and feels well. - Constitutional Vitals: Temp Pulse Resp BP Pulse Ox 97.5 F L 76 17 131/76 94 10/26/18 07:58 10/26/18 07:58 10/26/18 07:58 10/26/18 07:58 10/26/18 07:58 Exam: He is resting comfortably on the side of bed and appears in no acute distress. His affect is cheerful. I reviewed his medications and lab results. Internal Medicine: Result - Labs CBC & Chem 7: 10/21/18 05:38 10/21/18 05:38 Consult Discharge Plan - Plan Referrals: Te Christain MD [Primary Care Provider] - 1 week
[2018-10-26] MEDS: Aspirin Enteric Coated 81 MG Tablet PO SCH (20:15)
[2018-10-27] MEDS: Acetaminophen 325 MG TABLET PO SCH ×4 (01:30→17:47)
[2018-10-27] MEDS: Nystatin SUSP 5 ML UD.LIQ PO SCH ×4 (09:10→19:47)
[2018-10-27] MEDS: Finasteride 5 MG TABLET PO SCH (09:10)
[2018-10-27] MEDS: Multivit/Ca/Min/Fe/FA 1 TAB TABLET PO SCH (09:10)
[2018-10-27] MEDS: ZINC PO SCH ×2 (09:11→19:41)
[2018-10-27] MEDS: Methyl Salicylate/Menthol 28 GM TUBE TP SCH (09:11)
[2018-10-27] MEDS: (Omega-3/Dha/Epa/Fish Oil [Fish Oil 1,000 Mg Softgel]) PO SCH ×2 (09:11→19:41)
[2018-10-27] MEDS: VIT E PO SCH ×2 (09:11→19:41)
[2018-10-27] MEDS: VIT A PO SCH ×2 (09:11→19:41)
[2018-10-27] MEDS: COPPER PO SCH ×2 (09:11→19:41)
[2018-10-27] MEDS: VIT C PO SCH ×2 (09:11→19:41)
[2018-10-27] MEDS: Aspirin Enteric Coated 81 MG Tablet PO SCH (19:47)
[2018-10-28] MEDS: Acetaminophen 325 MG TABLET PO SCH ×3 (00:59→12:20)
[2018-10-28] MEDS: Finasteride 5 MG TABLET PO SCH (08:35)
[2018-10-28] MEDS: Multivit/Ca/Min/Fe/FA 1 TAB TABLET PO SCH (08:35)
[2018-10-28] MEDS: Nystatin SUSP 5 ML UD.LIQ PO SCH ×2 (08:35→12:20)
[2018-10-28] MEDS: ZINC PO SCH (08:36)
[2018-10-28] MEDS: VIT C PO SCH (08:36)
[2018-10-28] MEDS: Methyl Salicylate/Menthol 28 GM TUBE TP SCH (08:36)
[2018-10-28] MEDS: VIT A PO SCH (08:36)
[2018-10-28] MEDS: (Omega-3/Dha/Epa/Fish Oil [Fish Oil 1,000 Mg Softgel]) PO SCH (08:36)
[2018-10-28] MEDS: COPPER PO SCH (08:36)
[2018-10-28] MEDS: VIT E PO SCH (08:36)
--- NOTE | 2018-10-28 10:13 | Discharge Summary ---
Date of Encounter: 10/28/18 Time of Encounter: 10:00 - Discharge Diagnosis (1) Nasal fracture Priority: Primary Status: Acute Qualifiers: Fracture type: closed Fracture healing: with routine healing Qualified Code(s): S02.2XXD - Fracture of nasal bones, subsequent encounter for fracture with routine healing (2) Azotemia Priority: Secondary Status: Resolved (3) Elevated transaminase level Priority: Secondary Status: Resolved (4) Macrocytic anemia Priority: Secondary Status: Acute (5) Physical deconditioning Priority: Secondary Status: Acute (6) Altered mental status Priority: Secondary Status: Resolved Qualifiers: Altered mental status type: unspecified Qualified Code(s): R41.82 - Altered mental status, unspecified (7) Left knee pain Priority: Secondary Status: Resolved Qualifiers: Chronicity: acute Qualified Code(s): M25.562 - Pain in left knee Hospital course: Mr. Rodriguez is a 88 year old male who was admitted to [facility] swing bed after a October 04 stay at [facility] for confusion, disorientation, and hallucinations. He had sustained a fall 09/27/2018 with face trauma and had been hospitalized at [facility] September 28. Nasal bone fracture were documented as well as superficial abrasions. He had been discharged to a local SNF but her turned to [facility] ER for worsening confusion as per above. It was felt he would benefit from swing bed stay for ongoing care needs. I saw him on October 07 and performed a swing bed history and physical. He had physical therapy and occupational therapy evaluations with ongoing intervention and made satisfactory progress. On October 28 he was stable for discharge to an assisted living apartment. Captopril was discontinued and metoprolol was decreased due to borderline hypotension. His blood pressure stabilized. He will remain on this regimen at discharge. Azotemia resolved with BUN and creatinine decreasing to 22 and 1.00 respectively by 10/21/2018. Elevated LFTs normalized by October 16 and remained normal on follow-up labs. Anemia testing showed iron 88, transferrin saturation 68%, transferrin 93, ferritin >1500, and folate 16.2. B12 level was normal at 725 on 09/30/2018. His PCP can monitor CBC. There were no new problems otherwise and he was stable for discharge October 28. He will follow with his PCP within 1 week. - Time Spent with Patient Total time spent providing and/or coordinating discharge services: - Discharge Medications Prescriptions: New Metoprolol [Lopressor] 25 mg PO BID tablet Continue Alendronate Sodium [Fosamax] 35 mg PO ANGULO Aspirin [Lo-Dose Aspirin EC] 81 mg PO HS Atorvastatin [Lipitor] 40 mg PO DAILY Docusate [Colace] 100 mg PO BID PRN PRN Reason: Constipation Finasteride [Proscar] 5 mg PO DAILY Gemfibrozil [Lopid] 600 mg PO BID Multivitamin [One Daily Essential] 1 tab PO DAILY Polyethylene Glycol 3350 [MiraLAX] 17 gm PO DAILY PRN PRN Reason: Constipation Tamsulosin [Flomax] 0.4 mg PO BID Vit A/Vit C/Vit E/Zinc/Copper [Icaps Areds Softgel] 1 cap PO BID Acetaminophen 650 mg PO Q6H PRN #30 capsule PRN Reason: Pain [place]-3/Dha/Epa/Fish Oil [Fish Oil 1,000 mg Softgel] 1 cap PO BID Discontinued Captopril 50 mg PO TID Esomeprazole Magnesium [Nexium] 40 mg PO DAILY Loratadine [Allergy Relief] 10 mg PO DAILY Metoprolol Tartrate 50 mg PO BID Lactobacillus [Culturelle] 1 each PO BID #20 cap.sprink Home Medications: Alendronate Sodium [Fosamax] 35 mg PO ANGULO 03/14/18 [History] Aspirin [Lo-Dose Aspirin EC] 81 mg PO HS 03/14/18 [History] Atorvastatin [Lipitor] 40 mg PO DAILY 03/14/18 [History] Docusate [Colace] 100 mg PO BID PRN 03/14/18 [History] Finasteride [Proscar] 5 mg PO DAILY 03/14/18 [History] Gemfibrozil [Lopid] 600 mg PO BID 03/14/18 [History] Multivitamin [One Daily Essential] 1 tab PO DAILY 03/14/18 [History] Polyethylene Glycol 3350 [MiraLAX] 17 gm PO DAILY PRN 03/14/18 [History] Tamsulosin [Flomax] 0.4 mg PO BID 03/14/18 [History] Vit A/Vit C/Vit E/Zinc/Copper [Icaps Areds Softgel] 1 cap PO BID 03/14/18 [History] Acetaminophen 650 mg PO Q6H PRN #30 capsule 10/02/18 [Rx] [place]-3/Dha/Epa/Fish Oil [Fish Oil 1,000 mg Softgel] 1 cap PO BID 10/05/18 [History] Metoprolol [Lopressor] 25 mg PO BID tablet 10/28/18 [Rx] Allergies/Adverse Reactions: Allergy/AdvReac Type Severity Reaction Status Date / Time No Known Allergies Allergy Verified 03/14/18 07:41 Date of admission: 10/06/18 17:00 Primary care physician: Te Christian MD Consults: 10/06/18 18:21 Consult to Nutrition [CONS] Routine Comment: Consulting Provider: NUTRITION Reason for Dietary Consult: PO Supplementation Consult to Boiler Coverer [CONS] Routine Reason for SW Consult: [facility] placement or home health needs after discharge 10/06/18 18:37 Consult to Occupational Therapy [CONS] Routine Comment: Evaluate, develop and implement POC Reason for Consult: Evaluate, develop and implement POC Does patient have active BEDREST order?: No Is patient medically & hemodynamically stable?: Yes Patient assessed for mobility or mobilized this visit?: Yes Consult to Physical Therapy [CONS] Routine Comment: Evaluate, develop and implement POC Reason for Consult: Evaluate, develop and implement POC Does patient have active BEDREST order?: No Is patient medically & hemodynamically stable?: Yes Patient assessed for mobility or mobilized this visit?: Yes - Constitutional Vitals: Temp Pulse Resp BP Pulse Ox 97.5 F L 72 18 142/79 95 10/28/18 06:40 10/28/18 06:40 10/28/18 06:40 10/28/18 06:40 10/28/18 06:40 - Patient Status Disposition: Home, Self-Care - Discharge Instructions Follow Up With: Te Christian MD [Primary Care Provider] - 1 week - Diet and Activity Activity: as per physical therapy Diet: regular diet
--- NOTE | 2018-10-28 10:48 | Physician Discharge Referral ---
Home Health/Hosp Referral Info Transfer to: Home Health Attending Provider: Raul Provider in Charge Post Discharge: PCP Mark) - Diagnosis (1) Nasal fracture Priority: Primary Status: Acute (2) Azotemia Priority: Secondary Status: Resolved (3) Elevated transaminase level Priority: Secondary Status: Resolved (4) Macrocytic anemia Priority: Secondary Status: Acute (5) Physical deconditioning Priority: Secondary Status: Acute (6) Altered mental status Priority: Secondary Status: Resolved (7) Left knee pain Priority: Secondary Status: Resolved - Respiratory Orders Smoking Cessation: Smoking cessation has been advised. For more information, call the [place] Tobacco Quit Line at 1-785-ASSP-NOW. - Diet/Nutrition Diet/Nutrition Orders: Regular - Activity Activity Orders: Walker - Services Needed Following services are medically necessary services: Nursing, Home Health Aide, Physical Therapy, Occupational Therapy - Transfer Medications Home Medications: Alendronate Sodium [Fosamax] 35 mg PO ANGULO 03/14/18 [History] Aspirin [Lo-Dose Aspirin EC] 81 mg PO HS 03/14/18 [History] Atorvastatin [Lipitor] 40 mg PO DAILY 03/14/18 [History] Docusate [Colace] 100 mg PO BID PRN 03/14/18 [History] Finasteride [Proscar] 5 mg PO DAILY 03/14/18 [History] Gemfibrozil [Lopid] 600 mg PO BID 03/14/18 [History] Multivitamin [One Daily Essential] 1 tab PO DAILY 03/14/18 [History] Polyethylene Glycol 3350 [MiraLAX] 17 gm PO DAILY PRN 03/14/18 [History] Tamsulosin [Flomax] 0.4 mg PO BID 03/14/18 [History] Vit A/Vit C/Vit E/Zinc/Copper [Icaps Areds Softgel] 1 cap PO BID 03/14/18 [History] Acetaminophen 650 mg PO Q6H PRN #30 capsule 10/02/18 [Rx] [place]-3/Dha/Epa/Fish Oil [Fish Oil 1,000 mg Softgel] 1 cap PO BID 10/05/18 [History] Metoprolol [Lopressor] 25 mg PO BID tablet 10/28/18 [Rx] Allergies/Adverse Reactions: Allergy/AdvReac Type Severity Reaction Status Date / Time No Known Allergies Allergy Verified 03/14/18 07:41 Certification: Further, I certify that my clinical findings support that this patient is homebound (i.e. absences from home require considerable and taxing effort and are for medical reasons or hindu services or infrequently or short duration when for other reasons) because: Homebound Reason: Leaving home requires considerable and taxing effort due to condition (Impaired ambulatory ability, dementia) Attestation: My signature below is to certify that this patient is under my care and that I, or nurse practitioner, or a physician's mri assistant working with me, has a [id number] encounter with this patient.
[2018-10-28 11:00] VITALS: BP 116/78
== END 2018-10-28 17:19 | disposition home or self-care (01) | DRG 561 ==
LOC: INPPIK 17:00
PROVIDERS: ADMIT Internal Medicine; ATTEND Internal Medicine